=== PATIENT | female | born 1950 | race Asian ===

== ENCOUNTER 2017-12-02 19:30 | Inpatient (IN) | END 2017-12-09 21:01 | disposition home or self-care (01) | DRG 683 ==

== ENCOUNTER 2018-01-12 05:51 | Day surgery (SDC) | END 2018-01-12 10:56 | disposition home or self-care (01) ==

== ENCOUNTER 2018-03-22 08:40 | Day surgery (SDC) | END 2018-03-22 13:07 | disposition home or self-care (01) ==

== ENCOUNTER → 2018-04-22 | Outpatient (CLI) | END | disposition home or self-care (01) ==

== ENCOUNTER 2018-06-15 06:11 | Day surgery (SDC) | END 2018-06-15 09:00 | disposition home or self-care (01) ==